=== PATIENT | female | born 1950 | race Caucasian/White ===

== ENCOUNTER → 2024-06-07 07:45 | Outpatient (REF) | payer MEDICARE, OTHER, SELFPAY ==
[2024-06-07 08:46] LABS: % Basophils 0.2 % (0-2); % Immature Granulocytes 0.6 % (0-0.5); % Lymphocytes 6.1 % (20.5-51.1); % Monocytes 3.7 % (1.7-9.3); % Neutrophils 89.4 % (42.2-75.2); Absolute Immature Granulocytes 0.1 10^3/uL (0-0.05); Absolute Lymphocytes 0.7 10^3/uL (1.2-3.4); Absolute Monocytes 0.4 10^3/uL (0.1-0.6); Absolute Neutrophils 10.7 10^3/uL (1.4-6.5); Hematocrit 46.6 % (37.0-47.0); Hemoglobin 16.1 g/dL (12.0-16.0); Mean Corp Hgb Conc. 34.5 g/dL (33.0-37.0); Mean Corpuscular Hgb 32.1 pg (27.0-31.0); Mean Corpuscular Volume 92.8 fL (81.0-99.0); Mean Platelet Volume 9.2 fL (7.4-10.4); Nucleated Red Blood Cells % 0 %; Platelet Count 328 10^3/uL (130-400); Red Blood Cell Count 5.02 10^6/uL (4.20-5.40); White Blood Cell Count 11.9 10^3/uL (4.8-10.8)
[2024-06-07 09:26] LABS: ALT (SGPT) 23 U/L (0-35); AST (SGOT) 26 U/L (14-36); Alkaline Phosphatase 61 U/L (38-126); Blood Urea Nitrogen 17 mg/dl (7-17); Calcium 10.1 mg/dl (8.4-10.2); Carbon Dioxide 24 mmol/L (22-30); Chloride 96 mmol/L (98-107); Glucose 108 mg/dl (70-99); HDL Cholesterol 86 mg/dl; LDL Cholesterol, Calculated 164 mg/dl; Potassium 4.4 mmol/L (3.5-5.1); Sodium 138 mmol/L (135-145); Total Bilirubin 0.6 mg/dl (0.2-1.3); Total Cholesterol 264 mg/dl (50-199); Total Protein 7.7 g/dl (6.3-8.2); Triglyceride 71 mg/dl (10-149); Very Low Density Lipoprotein 14 mg/dl (0-30); eGFR > 60.00
[2024-06-07 10:03] LABS: Intact PTH 38.6 pg/ml (13.6-85.8)
[2024-06-07 10:53] LABS: TSH Reflex To Free T4 0.39 uIU/ml (0.47-4.68)
[2024-06-07 11:21] LABS: Free T4 1.18 ng/dl (0.78-2.19)
== END ==
LOC: REG 07:45
PROVIDERS: ATTENDING PHYSICIAN Student in an Organized Health Care Education/Training Program
DX: E21.3 Hyperparathyroidism, unspecified (principal); D72.819 Decreased white blood cell count, unspecified; E05.90 Thyrotoxicosis, unspecified without thyrotoxic crisis or storm; E78.00 Pure hypercholesterolemia, unspecified; Z00.00 Encounter for general adult medical examination without abnormal findings
CPT/HCPCS: 36415; 80053; 80061; 83970; 84439; 84443; 85025

== ENCOUNTER → 2024-07-28 10:58 | Outpatient (REF) | payer MEDICARE, OTHER, SELFPAY ==
[2024-07-28 12:44] LABS: % Basophils 0.8 % (0-2); % Eosinophils 1.8 % (0-6); % Immature Granulocytes 0.8 % (0-0.5); % Lymphocytes 16.6 % (20.5-51.1); % Monocytes 9.2 % (1.7-9.3); % Neutrophils 70.8 % (42.2-75.2); Absolute Basophils 0.1 10^3/uL (0-0.2); Absolute Eosinophils 0.1 10^3/uL (0-0.7); Absolute Immature Granulocytes 0.1 10^3/uL (0-0.05); Absolute Monocytes 0.6 10^3/uL (0.1-0.6); Absolute Neutrophils 4.3 10^3/uL (1.4-6.5); Hematocrit 42.8 % (37.0-47.0); Hemoglobin 14.4 g/dL (12.0-16.0); Mean Corp Hgb Conc. 33.6 g/dL (33.0-37.0); Mean Corpuscular Hgb 31.6 pg (27.0-31.0); Mean Corpuscular Volume 94.1 fL (81.0-99.0); Mean Platelet Volume 9.4 fL (7.4-10.4); Nucleated Red Blood Cells % 0 %; Platelet Count 316 10^3/uL (130-400); Red Blood Cell Count 4.55 10^6/uL (4.20-5.40); Red Cell Dist. Width 12.2 % (11.5-14.5); White Blood Cell Count 6.1 10^3/uL (4.8-10.8)
[2024-07-28 13:19] LABS: TSH Reflex To Free T4 1.22 uIU/ml (0.47-4.68)
== END ==
LOC: REG 10:58
PROVIDERS: ATTENDING PHYSICIAN Student in an Organized Health Care Education/Training Program
DX: E03.9 Hypothyroidism, unspecified (principal); D58.2 Other hemoglobinopathies
CPT/HCPCS: 36415; 84443; 85025

== ENCOUNTER 2024-08-29 21:28 | Observation (INO) | payer MEDICARE, OTHER, SELFPAY ==
[2024-08-29 12:47] VITALS: BP 160/99
[2024-08-29 13:19] LABS: % Basophils 0.9 % (0-2); % Eosinophils 0.7 % (0-6); % Immature Granulocytes 0.6 % (0-0.5); % Lymphocytes 25.8 % (20.5-51.1); % Monocytes 10.4 % (1.7-9.3); % Neutrophils 61.6 % (42.2-75.2); Absolute Basophils 0.1 10^3/uL (0-0.2); Absolute Eosinophils 0.1 10^3/uL (0-0.7); Absolute Lymphocytes 1.8 10^3/uL (1.2-3.4); Absolute Monocytes 0.7 10^3/uL (0.1-0.6); Absolute Neutrophils 4.3 10^3/uL (1.4-6.5); Hematocrit 45.6 % (37.0-47.0); Hemoglobin 15.5 g/dL (12.0-16.0); Mean Corpuscular Hgb 31.4 pg (27.0-31.0); Mean Corpuscular Volume 92.5 fL (81.0-99.0); Mean Platelet Volume 9.3 fL (7.4-10.4); Nucleated Red Blood Cells % 0 %; Platelet Count 321 10^3/uL (130-400); Red Blood Cell Count 4.93 10^6/uL (4.20-5.40); Red Cell Dist. Width 12.2 % (11.5-14.5)
[2024-08-29 13:36] LABS: ALT (SGPT) 23 U/L (0-35); AST (SGOT) 33 U/L (14-36); Alkaline Phosphatase 51 U/L (38-126); Blood Urea Nitrogen 14 mg/dl (7-17); Calcium 9.9 mg/dl (8.4-10.2); Carbon Dioxide 24 mmol/L (22-30); Chloride 100 mmol/L (98-107); Glucose 115 mg/dl (70-99); Potassium 3.4 mmol/L (3.5-5.1); Sodium 140 mmol/L (135-145); Total Bilirubin 0.6 mg/dl (0.2-1.3); Total Protein 7.3 g/dl (6.3-8.2); eGFR > 60.00
[2024-08-29 13:41] LABS: NT-proBNP 54.5 pg/ml
[2024-08-29 14:04] LABS: TSH Reflex To Free T4 1.38 uIU/ml (0.47-4.68)
--- NOTE | 2024-08-29 16:33 | ED.GENMED ---
History of Present Illness
General
Chief Complaint: Breathing Problem
Source: patient
Exam Limitations: none
Time Seen by Provider: 08/29/24 15:10
Nursing documentation reviewed up to this point in time: agreed with
History of Present Illness
History of Present Illness:
73-year-old female past medical history of hypertension hyperlipidemia presenting to the emergency department today with concerns of worsening shortness of breath mainly with exertion. Has had symptoms intermittently when walking up the stairs
today at the grocery store was walking and felt very short of breath and had some tingling into her legs and hands. This seemed to resolve at rest. Currently asymptomatic here. Denies chest pain associated or palpitations. Denies any similar
symptoms in the past. Denies any nausea vomiting numbness weakness
Review of Systems
Review of Systems
Allergies reviewed?: Yes
All Other Systems: ROS reviewed and negative except as documented in HPI and ROS
Phy Exam
Physical Exam
Physical Exam:
GENERAL: Alert , in no apparent distress
EYE: pupils equal and reactive
NECK: Supple, no significant adenopathy.
ENT: o/p clr, mmm.
CARDIAC: Regular rate and rhythm .
LUNGS: Clear breath sounds bilaterally, no acute respiratory distress, no wheezes/rales/rhonchi
ABDOMEN: Soft, without focal tenderness, no r/g, no cvat
NEUROLOGICAL: Alert and oriented, no focal neuro deficits
SKIN: Warm and dry, skin intact.
MUSCULOSKELETAL: No edema, well perfused.
PSYCH: Normal and appropriate interaction.
Scores
Heart Failure Risk
Heart Failure Risk Score: Yes
History of Stroke or TIA: No
History of intubation for respiratory distress: No
Heart rate on ED arrival >/= 110: Yes
SaO2 <90% on arrival on room air: No
HR >/=110 during 3min walk test (or too ill to perform test): Yes
ECG has acute ischemic changes: No
Urea >/=12mmol/L (BUN 33.6mg/dL): No
Serum CO2>/=35mmol/L: No
Troponin I or T elevated to SC Level (0.4mg/dL): No
NT-proBNP >/=5,000ng/L (5,000pg/ml): No
HF Risk Score: 2
Admission Status: MEDIUM RISK 9.2% Consider observation or discharge to home with homecare & f/u visit to PCP/Armature Tester, or SNF for treatment
Course
Orders/Labs/Results
Orders:
Orders
08/29/24 12:45
EKG [Electrocardiogram (*1)] Urgent
Reason for Study: Shortness of Breath
08/29/24 12:46
EKG- Treatment ONCE
08/29/24 13:01
BNP [NT-proBNP] Urgent
Complete Blood Count/With Diff Urgent
Comprehensive Metabolic Panel Urgent
TSH Reflex To Free T4 Urgent
08/29/24 15:12
Chest [CR Chest - 2 Views ] Urgent
Comment:
Reason For Exam: powell sob
08/29/24 16:04
D-Dimer Urgent
Troponin I Urgent
Abnormal Lab Results
08/29/24
13:01
MCH 31.4 H pg
(27.0-31.0)
Absolute Monos (auto) 0.7 H 10^3/uL
(0.1-0.6)
Immature Gran % 0.6 H %
(0-0.5)
Monocytes % 10.4 H %
(1.7-9.3)
Potassium 3.4 L mmol/L
(3.5-5.1)
Glucose 115 H mg/dl
(70-99)
08/29/24 13:01
08/29/24 13:01
Vital Signs
Initial and Last Documented VS:
Initial Vital Signs
Temp Pulse Resp BP Pulse Ox
98.3 F 119 18 160/99 99
08/29/24 12:47 08/29/24 12:47 08/29/24 12:47 08/29/24 12:47 08/29/24 12:47
Last Documented Vital Signs
Temp Pulse Resp BP Pulse Ox
98.3 F 85 20 160/99 94
08/29/24 12:47 08/29/24 17:15 08/29/24 16:39 08/29/24 12:47 08/29/24 18:30
MDM/Problems Addressed
MDM/Problems Addressed:
73-year-old female presenting to the emergency department today with concerns of POWELL intermittently over the past few days but specifically worsening today where she had an episode where she felt very short of breath in the grocery store and had
tingling into her hands and feet. Symptoms now resolved. On arrival tachycardic and hypertensive otherwise vital signs normal. No history of blood clots no recent trauma surgery immobilization, leg swelling, estrogen product usage. Labs
unremarkable EKG nonischemic no signs of arrhythmia. Chest x-ray normal troponin negative D-dimer negative. Unclear source of shortness of breath. She was walked here and claims that she felt very short of breath again had trouble ambulating
symptoms improved when resting considering her ongoing significant symptomatic shortness of breath and dyspnea on exertion plan to admit for further monitoring and assessment.
*Critical Care Note
Total Time (30-74mins, 75-104mins- exclusive of procedures): Not Applicable
ED Attending Note
-
Portions of this chart may have been created with voice recognition software.� Occasional wrong word or��sound alike� substitutions may have occurred due to the inherent limitations of voice recognition software.
Discharge Plan
Departure
Patient Disposition: Admit
Date of Disposition: 08/29/24
Time of Disposition: 18:51
Admit to: Telemetry
Admit to doctor: Michelle
Presentation/result/management discussed w/ accepting MD/DO: Hospitalist
Patient with high blood pressure during this ER visit?: No
Condition: Good
Covid-19: Not Applicable
Discharge Problem:
POWELL (dyspnea on exertion)
Referrals:
Renuka Chandra MD [Family Provider] -
Interventions
Interventions:
*Risk Screen - Suicide Last Done: 08/29/24 12:47
*General Assessment Last Done: 08/29/24 12:47
*Neglect/Abuse Screening Last Done: 08/29/24 12:47
ED- Fall Risk Assessment Last Done: 08/29/24 15:30
*ED COVID-19 Vaccine History Last Done: 08/29/24 12:47
ED- Cardiac Assessment Last Done: 08/29/24 16:34
ED- Pulmonary Assessment Last Done: 08/29/24 16:34
Discharge Date and Time
Print Language: SURINAMESE
[2024-08-29 16:41] LABS: D-Dimer < 0.27 ug/mlFEU (0.00-0.50)
[2024-08-29 16:42] LABS: Troponin I < 0.012 ng/ml
[2024-08-29] MEDS: TYLENOL 650 MG PO ×2 (19:18→22:48)
--- NOTE | 2024-08-29 19:29 | HPS.HSE ---
Addendum entered and electronically signed by Nelli Martinez DO 08/30/24 00:36:
The patient was seen and examined. I have discussed the patient with Ragini, reviewed her history and physical, and agree with her H & P, assessment and plan of care with additions:
The patient denies chest pain, dyspnea has been worse on exertion, such as walking up stairs, over the past week or so. Of note, she was able to work out on her elliptical yesterday without chest pain nor symptoms.
BP remains high in ED. Orthostatics are normal in ED.
HTN and otherwise VSS/AF
Neuro-no focal deficits
CV RRR, no m/r/g
Lungs CTA b/l no w/r/r
Neuro-no focal deficits
# Concern is for possible cardiogenic etiology to dyspnea, initial EKG with ST changes, repeat EKG without ST changes , DDimer WNL
-tele monitoring
-check echo
-consider Cardiology cx pending echo/clinical course
#Hypokalemia (3.4), hypomagnesemia (1.7)
-replete, monitor
Original Note:
Family Physician
-
Family Physician: Renuka Chandra MD
Chief Complaint
-
shortness of breath with exertion
History of Present Illness
Patient is a 73-year-old female with past medical history significant for hypertension, hyperthyroidism, hypercalcemia, and osteoporosis who presented to [facility] for evaluation of increased dyspnea on exertion. Patient states over past few
days she has noticed an increase in shortness of breath with exertion intermittently. She states when symptoms are present she has tingling in her arms and legs with diaphoresis. Patient reports she has noticed this when walking up stairs over past
few days then this morning when walking into grocery store with any empty cart, she reports only getting to second aisle when she decided she needed to come to ED for evaluation. She did mention she was able to work on elliptical yesterday for 15
minutes without any symptoms or shortness of breath. Patient denies any fever, chills, chest pain, palpitations, cough, nausea, vomiting, constipation, diarrhea or urinary symptoms.
Medical History
Past Medical History
Past Medical History: Reports Other
Additional Past Medical History:
hypertension
hyperthyroidism
hypercalcemia
osteoporosis
Past Surgical History: Reports Other
Additional Past Surgical History:
hysterectomy
partial parathyroidectomy
Social History
Tobacco: Non-smoker
Alcohol: Occasional
Drug: Marijuana (smokes medical marijuana vape prior to bed to assist with sleep)
Personal:
Living: With Family
Employment: Retired
Family History
Family History: Not pertinent
Allergies / Home Medications
Allergies reflects when Allergies were last updated in [facility].
Home Medications with original date entered in [facility]
Allergy/Medication List:
Allergies
Allergy/AdvReac Type Severity Reaction Status Date / Time
No Known Allergies Allergy Unverified 08/29/24 12:50
Home Medications
Medical Marijuana 3 puff inhalation HS 08/29/24
acetaminophen 500 mg tablet (Tylenol Extra Strength) 1,000 mg PO Q6HPRN PRN mild pain 08/29/24
calcium carbonate (Calcium 600) 600 mg PO DAILY 08/29/24
hydrochlorothiazide 25 mg tablet 25 mg PO HS 08/29/24
ipratropium bromide 21 mcg (0.03 %) nasal spray 2 spray intranasal BIDPRN PRN congestion 08/29/24
propranolol 40 mg tablet 40 mg PO HS 08/29/24
sumatriptan succinate 100 mg tablet 100 mg PO DAILYPRN PRN migraine 08/29/24
Review of Systems
-
History Source: Patient
Constitutional: Reports No Symptoms
EENT: Reports No Symptoms
Respiratory: Reports Other (shortness of breath with exertion )
Cardiac: Reports Diaphoresis
Abdomen/GI: Reports No Symptoms
: Reports No Symptoms
Musculoskeletal: Reports No Symptoms
Skin: Reports No Symptoms
Neurological: Reports Numbness (bilateral upper and lower extremities )
Endocrine: Reports No Symptoms
Hematologic/Lymphatic: Reports No Symptoms
Psych: Reports No Symptoms
Physical Exam
Vital Signs
Vital Signs
Temp Pulse Resp BP Pulse Ox
98.3 F 85 20 160/99 94
08/29/24 12:47 08/29/24 17:15 08/29/24 16:39 08/29/24 12:47 08/29/24 18:30
Physical Exam
General: Well Developed, Well Nourished, No Apparent Distress, Comfortable and Conversant
HEENT: NormoCephalic, Moist mucous membranes, Atraumatic, PERRLA, [place] Conjunctivae, Nose Appears Normal and Ears Appear Normal
Respiratory: Clear and Non Labored Respirations; No Wheezes, Rales, Rhonchi or Crackles
Cardiac: S1/S2 and Regular Rhythm; No Murmur, Rub or Gallop
Breast: Deferred by me
GI: Soft, Non Tender, Non Distended and Normal Bowel Sounds; No Organomegaly
Rectal: Deferred by Provider
Genito-urinary: Deferred by me
Musculoskeletal: No Clubbing, No Cyanosis and No Edema
Skin: Warm and IV/Catheter Site; No Rash
Neuro: Awake, Alert, AO x 3 and Nonfocal/grossly intact
Hematologic/Lymphatic: No Lymphadenopathy
Psych: Calm and Intact Judgment/Insight
Laboratory Results
-
08/29/24 13:01
08/29/24 13:01
Laboratory Results
Total Bilirubin 0.6 mg/dl (0.2-1.3) 08/29/24 13:01
AST 33 U/L (14-36) 08/29/24 13:01
ALT 23 U/L (0-35) 08/29/24 13:01
Alkaline Phosphatase 51 U/L (38-126) 08/29/24 13:01
Troponin I < 0.012 ng/ml 08/29/24 16:04
Data Reviewed
-
Diagnostic Radiology: Report Reviewed by me (CXR: No acute cardiopulmonary process.)
Medical Tests (Nuc Med, Echo, EKG etc): Report Reviewed by me (CXR: SINUS TACHYCARDIA WITH FUSION COMPLEXES ST and T WAVE ABNORMALITY, CONSIDER ANTEROLATERAL ISCHEMIA)
Lab Data: Labs Reviewed by me
Impression/Plan
-
IMPRESSION/PLAN:
#dyspnea on exertion
EKG: SINUS TACHYCARDIA WITH FUSION COMPLEXES
ST and T WAVE ABNORMALITY, CONSIDER ANTEROLATERAL ISCHEMIA
CXR: No acute cardiopulmonary process
- Admit to telemetry
- ECHO in morning
- Consider cards consult
#hypertension
- continue HCTZ and propranolol
#hyperthyroidism
#hypercalcemia
Hx partial parathyroidectomy
#Insomnia
utilizes medical marijuana at home for sleep
#osteoporosis
bone density survey: Osteoporosis. There has been a statistically significant decrease in bone mineral density in the lumbar spine and proximal femur since the prior examination.
Bone mineral density in the forearm is within the range of osteoporosis. There has been no statistically significant interval change.
Code Status: Full Code
DVT Prophylaxis: Lovenox Sq
[2024-08-29 22:12] LABS: Troponin I < 0.012 ng/ml
[2024-08-29 22:25] VITALS: BP 145/90
[2024-08-29 22:26] VITALS: BMI 24.2
[2024-08-29 22:39] LABS: Magnesium 1.7 mg/dl (1.6-2.3)
[2024-08-29] MEDS: MELATONIN 5 MG PO (22:48)
[2024-08-29] MEDS: ORETIC 25 MG PO (22:49)
[2024-08-29] MEDS: KCL 40 MEQ PO (22:49)
[2024-08-29] MEDS: INDERAL 40 MG PO (22:49)
--- NOTE | 2024-08-29 23:31 | PTCARENOTE ---
Patient arrived on unit from ED via stretcher. Patient able to safely ambulate into room 339-2 on . Patient AAOx3 and able to make needs known. Oriented to unit. Call hernandez within reach. Plan of care ongoing.
[2024-08-30] MEDS: MAGNESIUM SULFATE 102 GRAMS IV (01:20)
[2024-08-30 03:48] VITALS: BP 132/81
[2024-08-30 06:26] LABS: Hematocrit 43.1 % (37.0-47.0); Hemoglobin 14.7 g/dL (12.0-16.0); Mean Corp Hgb Conc. 34.1 g/dL (33.0-37.0); Mean Corpuscular Volume 93.7 fL (81.0-99.0); Mean Platelet Volume 9.7 fL (7.4-10.4); Platelet Count 283 10^3/uL (130-400); Red Cell Dist. Width 12.2 % (11.5-14.5); White Blood Cell Count 5.3 10^3/uL (4.8-10.8)
[2024-08-30 06:55] LABS: Blood Urea Nitrogen 10 mg/dl (7-17); Calcium 8.7 mg/dl (8.4-10.2); Carbon Dioxide 23 mmol/L (22-30); Chloride 105 mmol/L (98-107); Estimated Creatinine Clearance 69 ml/min; Glucose 100 mg/dl (70-99); Sodium 138 mmol/L (135-145); eGFR > 60.00
[2024-08-30 08:26] VITALS: BP 157/93
--- NOTE | 2024-08-30 10:03 | W.PN.HOSP.TC ---
Addendum entered and electronically signed by Francesco Lui MD 08/30/24 13:32:
Seen and examined by me independently in collaboration with the medical coding manager.
Lab data and imaging data reviewed.
Addendum as below :
Patient without prior cardiopulmonary issues presented with episodic shortness of breath. The shortness of breath is associate with exertion sometimes on other times without it. First episode according to patient was 3 days ago and the next 1 was
on the day of admission. She developed sudden onset of shortness of breath and said last for a while. The last episode she had uneasy feeling in general she had tingling numbness in her limbs. She also broke out in a sweat. She did not feel
right.
According to the she had 1 more episode 5 to 7 days prior to admission to the hospital. She does not perceive any palpitations or racing of the heart. No cough. No sore throat. No wheeze.
No prior cardiac disease.
Chest is clear. Heart sound S1 plus S2 heard.
No lower extremity edema. Abdomen benign.
Admitting EKG showed nonspecific ST-T changes but the follow-up EKG was normal. Chest x-ray negative. Diagnostic eval negative so far.
Concern would be of any exertional angina or any intermittent arrhythmia.
Consult cardiology.
Hypokalemia-replete. Patient on long standing hydrochlorothiazide without prior electrolyte issues. Will continue to follow.
Blood pressure on the higher side unclear if related to her current situation. Usually well-controlled. Continue with hydrochlorothiazide. She is on propranolol for her migraine headaches which we will continue. Currently no migraine headaches.
Discussed with at bedside.
Total time spent on today's encounter was 52 minutes which included time spent in counseling the patient/family regarding diagnosis and treatment plan as listed above, goals of care, and symptom management. Case was discussed with nursing staff,
specialists, and care coordinators/case management. All labs and imaging personally reviewed by me. Remainder the time spent in detailed review of previous records, lab data, imaging, and other medical provider documentation.
Original Note:
Today's Communication/Plan
-
d/c pending card recs
Assessment / Plan
Assessment / Plan
The patient is a 73-year-old female with past medical history significant for hypertension, hyperthyroidism, hypercalcemia, and osteoporosis who presented to ED for evaluation of increased dyspnea on exertion
#dyspnea on exertion
CXR: No acute cardiopulmonary process
Trops negative
D-dimer, TSH WNL
pro BNP 54.5
- ECHO unremarkable
- card input pending , stress test?
- d/c accordingly
# Concern is for possible cardiogenic etiology to dyspnea, initial EKG with ST changes, repeat EKG without ST changes
-tele monitoring
#Hypokalemia (3.4), hypomagnesemia (1.7)
-repleted, monitor
#hypertension
- continue HCTZ and propranolol
#hyperthyroidism
#hypercalcemia
Hx partial parathyroidectomy
#Insomnia
utilizes medical marijuana at home for sleep
#osteoporosis
Bone density survey 03/12: Osteoporosis. There has been a statistically significant decrease in bone mineral density in the lumbar spine and proximal femur since the prior examination.
Bone mineral density in the forearm is within the range of osteoporosis. There has been no statistically significant interval change.
Code Status: Full Code
DVT Prophylaxis: Lovenox Sq
Anticipated Discharge: Within 24 hours
Subjective/Interval History
-
Date of Service: August 30, 2024
Afebrile. Bp slightly on higher side
Objective Data
-
Labs:
Laboratory Results
08/30/24
05:42
WBC 5.3
Hgb 14.7
Hct 43.1
Plt Count 283
Sodium 138
Potassium 4.0
Chloride 105
Carbon Dioxide 23
BUN 10
Creatinine 0.7
Glucose 100 H
Calcium 8.7
Vital Signs:
Vital Signs
Temp Pulse Resp BP Pulse Ox
98.3 F 85 16 157/93 98
08/30/24 08:26 08/30/24 08:26 08/30/24 08:26 08/30/24 08:26 08/30/24 08:26
I&O
08/29/24 08/30/24 08/31/24
06:59 06:59 06:59
Intake Total 480 / 480
Balance 480 / 480
Review of Systems
-
History Source: Patient
All other systems: Reviewed and negative
Physical Exam
-
General: Well Developed and Well Nourished
Respiratory: Clear to Auscultation
Cardiac: Regular Rhythm
GI: Soft and Nontender
Skin: Warm and Dry
Neuro: Awake, Alert and Oriented
Psych: Calm
Data Reviewed
-
Diagnostic Radiology: Report Reviewed by me
Labs: Labs Reviewed by me
--- NOTE | 2024-08-30 10:40 | CON.CAR ---
Addendum entered and electronically signed by Joaquin River MD 08/30/24 11:58:
I saw and examined the patient.
The CHARTERED WEALTH MANAGER or PA's note was reviewed and I agree with the note.
Comment: General: Well developed, well nourished in NAD.
Neck: Supple, no JVD, HJR, carotids +2 B/L, no bruits bilaterally.
Heart: Non displaced PMI, RRR, no murmurs, No S3, S4, no rubs.
Lungs: Scattered rhonchi
Extremities: No clubbing, cyanosis or edema bilaterally.
Neuro: Grossly nonfocal, awake, alert and oriented x3.
Angie has a history of migraines. She presents with progressive shortness of breath which occurred at rest. She normally exercises and exercised 2 days ago. Cardiology is asked to see patient to exclude cardiac etiology.
Unusual for cardiac presentation and that symptoms occurred rapidly and was exercising up until 2 days ago. Also troponins are negative and ECG is unremarkable.
Echocardiogram was normal as well.
Will do exercise sestamibi stress test from 08/31/2024 and if normal would pursue other workup such as pulmonary etiology.
Original Note:
Consultation
Consultation Request
Date/Time Consultation Performed: 08/30/24
Requesting Provider: Dr. Lui
Performing Provider: Kristina Lewis PA-C for Dr. River
Reason for Consultation: SOB
Medical History
-
Chief Complaint: SOB
History of Present Illness:
Patient is a 73-year-old female with past medical history of migraines, back pain, parathyroid surgery who presented to [facility] for evaluation of shortness of breath. She reports over the last several weeks she has randomly noted that
her breathing is difficult and more rapid. Yesterday she reported it was worse. She went to the grocery store and after going down about 2 aisles felt dyspneic as well as with tingling in her bilateral arms and legs and broke out into a sweat.
She came to the ER for evaluation. She reports this resolved over time. Since admission she reports recurrence several times, after prolonged talking, and once after ambulating in the hallway with nursing. Troponins negative x 2. Initial EKG
with concern for anterolateral ST abnormality, resolved upon repeat. No CP. She does report she was able to go on the elliptical for about 15 minutes yesterday morning without difficulty. Cardiology consulted for evaluation. Denies history of
cardiac issues or lung issues in past.
PMH:
Migraines
Back pain
Parathyroid surgery
Past Medical History
Past Medical History: Other (in HPI)
Social History
Tobacco: Non-Smoker
Alcohol: Daily (2 small glasses of wine)
Personal:
Living: With Family
Employment: Retired (teacher)
Family History
Family History: Other (possible CVA in father)
Allergies / Home Medications
Allergy/AdvReac Type Severity Reaction Status Date / Time
No Known Allergies Allergy Unverified 08/29/24 12:50
�Medication �Instructions �Recorded �Confirmed �Type
Medical Marijuana 3 puff inhalation HS 08/29/24 08/29/24 History
acetaminophen 500 mg tablet 1,000 mg PO Q6HPRN PRN mild pain 08/29/24 08/29/24 History
(Tylenol Extra Strength)
calcium carbonate (Calcium 600) 600 mg PO DAILY Supplement 08/29/24 08/29/24 History
hydrochlorothiazide 25 mg tablet 25 mg PO HS Fluid 08/29/24 08/29/24 History
Retention/Swelling
ipratropium bromide 21 mcg (0.03 2 spray intranasal BIDPRN PRN 08/29/24 08/29/24 History
%) nasal spray congestion
propranolol 40 mg tablet 40 mg PO HS Blood Pressure 08/29/24 08/29/24 History
sumatriptan succinate 100 mg tablet 100 mg PO DAILYPRN PRN migraine 08/29/24 08/29/24 History
Review of Systems
-
History Source: Patient
All other systems: Negative unless noted
Physical Exam
Vital Signs
Temp Pulse Resp BP Pulse Ox
98.3 F 85 16 157/93 98
08/30/24 08:26 08/30/24 08:26 08/30/24 08:26 08/30/24 08:26 08/30/24 08:26
Lab Results
08/30/24 05:42
08/30/24 05:42
Troponin I < 0.012 ng/ml 08/29/24 21:40
Xko-F-Ivcuyvmeuel Pept 54.5 pg/ml 08/29/24 13:01
Physical Exam
General: No Apparent Distress and Comfortable
HEENT: Normocephalic, Anicteric and Moist Mucous Membranes
Respiratory: Wheezes (mild exp ) and Non Labored Respirations
Cardiac: S1/S2 and Regular Rhythm
GI: Soft, Non Tender, Non Distended and Normal Bowel Sounds
Musculoskeletal: No Clubbing, No Cyanosis and No Edema
Skin: Warm and Dry
Neuro: AO x 3
Impression / Plan
-
Primary Forging Machine Hand: none prior to admission
Assessment:
Presentation with SOB
Negative troponins x2
Migraines
Back pain
Parathyroid surgery
ECHO 08/30/24: pending
Plan:
-Patient presents with shortness of breath, with some features concerning for angina and others atypical
-Troponins negative x 2
-Chest x-ray without acute abnormality
-O2 sats stable on room air. check amb pulse ox
-Telemetry without arrhythmia overnight
-Initial EKG on arrival with artifact, however evidence of possible anterolateral ST abnormality, resolved by repeat EKG
-Echo pending
-Discussed exercise nuclear stress test in a.m. and patient agreeable. N.p.o. after midnight.
-Further recommendations based on results of cardiac testing
Data Reviewed
-
EKG: Tracing Personally Visualized and interpreted
Radiology: Report Reviewed by me
Labs: Labs Reviewed by me
Old Records: Reviewed
[2024-08-30 11:29] VITALS: BP 155/96
[2024-08-30] MEDS: TYLENOL 650 MG PO ×3 (11:30→22:16)
[2024-08-30 15:30] VITALS: BP 132/81
--- NOTE | 2024-08-30 16:33 | CM ---
Alert awake oriented patient who lives with her Vamsi who lives in a 2 story home with 3 steps to enter and 10 to bed bathroom. She is independent in driving and in all activities of daily living.No adaptive devices. Offered VN she
declined.[facility] letter given explained. Pt declined to sign.
Never had VN/SNF
Pharmacy [facility]
PCP Dr Morrow
PLAN Home no needs
[2024-08-30] MEDS: LOVENOX 40 MG SC (17:31)
[2024-08-30 19:36] VITALS: BP 130/84
[2024-08-30] MEDS: ORETIC 25 MG PO (21:44)
[2024-08-30] MEDS: MELATONIN 5 MG PO (22:16)
[2024-08-30 23:40] VITALS: BP 122/82
[2024-08-31 03:36] VITALS: BP 138/90
--- NOTE | 2024-08-31 08:51 | W.DCSUMMARY ---
Discharge Summary
Discharge Data
Date of Admission: 08/29/24
Date of Discharge: 08/31/24
-
Pending Results: No
Hospital Course
Discharging Physician : Milton Sherman MD; Francesco Lui MD
Disposition : Home
Primary care physician : Renuka Chandra
Principal Discharge diagnosis : Dyspnea on exertion
Chronic Discharge diagnosis : Hypertension, hypothyroidism, hypercalcemia, insomnia, osteoporosis,
Hospital Course : 73-year-old female with past medical history significant for hypertension, hyperthyroidism, hypercalcemia, and osteoporosis who presented to ED for evaluation of increased dyspnea on exertion. Patient stated over past few days
she noticed an increase in shortness of breath with exertion intermittently guillermo when walking up stairs and when walking into grocery store with any empty cart on [employer]. Initial EKG in the ER showed sinus tachycardia with fusion complexes, ST and T
wave abnormality, however repeat EKG and tropes were negative. Chest x-ray was obtained which showed no acute cardiopulmonary process. Patient was admitted to telemetry with plan to complete echo and cardiology consult was placed. D-dimer, TSH WNL
pro BNP 54.5. Potassium was 3.4 and magnesium was 1.7, she was given p.o. KCl 40 mEq and 1 g magnesium sulfate IV. Her home medication for blood pressure were continued during her stay at the hospital. Echo was unremarkable in the morning.
Cardiology saw the patient and believe this was unusual for cardiac presentation as the symptoms occur rapidly and she was able to perform ADLs 2 days ago. They recommended stress test for further evaluation, which came back unremarkable. She has
been cleared medically stable for discharge home with outpatient cardiac follow-up scheduled for September 28, 2024. 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
Important imaging findings : CXR FINDINGS:
Lungs: Stable left basilar scarring. No convincing acute focal infiltrates. No significant pleural effusions. No visualized pneumothorax.
Heart: Cardiac and mediastinal contours are unremarkable. No overt pulmonary vascular congestion.
Osseous structures: No acute abnormalities.
IMPRESSION:
No acute cardiopulmonary process
Procedure findings :
EKG #1: SINUS TACHYCARDIA WITH FUSION COMPLEXES
ST and T WAVE ABNORMALITY, CONSIDER ANTEROLATERAL ISCHEMIA
EKG#2:
NORMAL SINUS RHYTHM
PROLONGED QT
ECHO:
CONCLUSIONS
Normal left ventricular chamber size. Normal left ventricular systolic
function. Normal regional wall motion. Normal left ventricular wall thickness.
Left ventricular ejection fraction is 55-60% by Dickey's method of discs.
Normal diastolic function.
Discharge Plan
-
Patient Disposition: Home (Routine Discharge)
Discharge Diagnosis/Procedures: Episodic shortness of breath of unclear etiology
Diet: 2 Gram Sodium
Activity: As tolerated
Driving Restrictions: As prior to admission
Bathing Restrictions: None
Others Tests: Out patient Bard[employer] heart monitor- to be arranged by cardiology
Referrals:
Renuka Chandra MD [Family Provider] - in less than 1 week
Renetta Tavares PA-C [Specified Professional Personl] - 09/28/24 7:40 am (You have a cardiology follow up appointment at the [place] office. Please call with questions. )
Prescriptions:
Continued
sumatriptan succinate 100 mg Tablet
100 mg PO DAILYPRN PRN (Reason: migraine)
acetaminophen [Tylenol Extra Strength] 500 mg Tablet
1,000 mg PO Q6HPRN PRN (Reason: mild pain)
calcium carbonate [Calcium 600] 600 mg calcium (1,500 mg) Tablet
600 mg PO DAILY
propranolol 40 mg Tablet
40 mg PO HS
hydrochlorothiazide 25 mg Tablet
25 mg PO HS
ipratropium bromide 21 mcg (0.03 %) Odon,Non-Aerosol
2 spray INTRANASAL BIDPRN PRN (Reason: congestion)
Medical Marijuana
3 puff inhalation HS
Discharge Orders:
Discharge Patient (As Directed); Ordered 08/31/24
Ordered By: Francesco Lui
Discharge Date and Time
Print Language: MAORI
--- NOTE | 2024-08-31 10:42 | W.PN.CARDCBS ---
Today's Communication / Plan
-
Exercise nuclear stress test today
Impression / Plan
-
Primary Technology Assistant: none prior to admission
Assessment:
Presentation with SOB
Negative troponins x2
Migraines
Back pain
Parathyroid surgery
ECHO 08/30/24: pending
Plan:
-Patient presents with shortness of breath, with some features concerning for angina
-Denies further symptoms during hospitalization
-Troponins negative x 2
-CBC unremarkable
-proBNP not elevated, 54.5
-TSH within normal limits
-Renal function/electrolytes and LFTs within normal limits.
-Hyperglycemia�check hemoglobin A1c
-Chest x-ray without acute abnormality
-Telemetry without arrhythmia
-Calcium score CT scan 05/18/2023 calcium score 0. Ascending thoracic aorta mildly ectatic 4.2 cm.
-Echo 08/30/2024 with normal biventricular size and systolic function, normal diastolic function, normal LV wall thickness and no significant valve pathology. No pericardial effusion.
-Blood pressures elevated although improved. Will check blood pressure response to exercise with stress test.
-Exercise nuclear stress test today- pending
-Further recommendations based on results of cardiac testing; if stress test is reassuring plan for discharge with outpatient cardiac follow-up
Progress Note - Technology Assistant
Subjective
Date of Service: August 31, 2024
Objective
Labs:
08/30/24 05:42
08/30/24 05:42
Labs
Hgb 14.7 g/dL (12.0-16.0) 08/30/24 05:42
Hct 43.1 % (37.0-47.0) 08/30/24 05:42
Plt Count 283 10^3/uL (130-400) 08/30/24 05:42
Sodium 138 mmol/L (135-145) 08/30/24 05:42
Potassium 4.0 mmol/L (3.5-5.1) 08/30/24 05:42
BUN 10 mg/dl (7-17) 08/30/24 05:42
Creatinine 0.7 mg/dL (0.6-1.0) 08/30/24 05:42
Glucose 100 mg/dl (70-99) H 08/30/24 05:42
Troponins
08/29/24 08/29/24
16:04 21:40
Troponin I < 0.012 < 0.012
Vital Signs and I&O:
Vital Signs
Temp Pulse Resp BP Pulse Ox
97.8 F 70 20 138/90 97
08/31/24 03:36 08/31/24 03:36 08/31/24 03:36 08/31/24 03:36 08/31/24 03:36
Vital Signs
Temp Pulse Resp BP Pulse Ox
97.8 F 70 20 138/90 97
08/31/24 03:36 08/31/24 03:36 08/31/24 03:36 08/31/24 03:36 08/31/24 03:36
Intake & Output
08/29/24 08/30/24 08/31/24 09/01/24
06:59 06:59 06:59 06:59
Intake Total 480 / 480 420 / 420
Balance 480 / 480 420 / 420
Physical Exam
Physical Exam
General: No acute distress, AAOX3
Neck: Negative JVD
Heart: Regular, positive S1/S2,No murmur
Lungs: CTA b/l, negative wheezes/rales/rhonchi
Abd: Positive BS, NT/ND, neg rebound/rigidity/guarding
Ext: Negative cyanosis/clubbing/edema
Neuro: nonfocal
[2024-08-31] MEDS: TYLENOL 650 MG PO (11:22)
[2024-08-31] MEDS: METAMUCIL, KONSYL 1 PACKET PO (11:23)
[2024-08-31 11:48] VITALS: BP 147/96
--- NOTE | 2024-08-31 13:22 | W.PN.HOSP.TC ---
Today's Communication/Plan
-
Follow stress test report
DC planning
Assessment / Plan
Assessment / Plan
Episodic shortness of breath associated with exertion. Associated sweating symptom with it once. So far diagnostic testing negative for cardiopulmonary acute processes. Evaluating for exertional angina. Stress test done report pending.
Brief nonsustained SVT-noted yesterday on telemetry. Asymptomatic. In view of episodic nature of her symptoms and if stress test is negative to consider for outpatient Holter.
Hypertension-continue with the home regimen
Migraine headaches-no breakthroughs-continue the home medication
DC home when okay from cardiology standpoint.
Anticipated Discharge: Today
Subjective/Interval History
-
Date of Service: August 31, 2024
Back from her stress test. Report pending.
Patient without recurrence of her symptoms.
Voicing no specific complaints.
Objective Data
-
Vital Signs:
Vital Signs
Temp Pulse Resp BP Pulse Ox
98.5 F 95 17 147/96 100
08/31/24 11:48 08/31/24 11:48 08/31/24 11:48 08/31/24 11:48 08/31/24 11:48
I&O
08/30/24 08/31/24 09/01/24
06:59 06:59 06:59
Intake Total 480 / 480 420 / 420
Balance 480 / 480 420 / 420
Review of Systems
-
Constitutional: Denies Fever
EENT: Denies Sore Throat
Respiratory: Denies Trouble Breathing
Cardiac: Denies Chest Pain or Palpitations
Abdomen/GI: Denies Abdominal Pain, Nausea or Vomiting
Physical Exam
-
General: No Apparent Distress
Respiratory: Non Labored Respirations; Negative Wheezes, Crackles or Accessory Resp Muscle Use
Cardiac: Regular Rhythm and S1/S2; Negative Tachycardic
GI: Soft
Neuro: AO x 3
--- NOTE | 2024-08-31 15:48 | CM ---
MD entered order for discharge.
Pt said Water will drive her home.Offered VN she declined need.
She is awaiting cardiology to call back to set up monitor .
PLAN Home no needs
[2024-08-31 16:03] VITALS: BP 152/90
[2024-08-31 20:42] LABS: Hepatitis C Antibody Negative (Negative)
[2024-09-01 09:37] LABS: Glycohemoglobin (HgbA1c) 5.1 % (4.0-5.6)
== END 2024-08-31 17:37 | disposition home or self-care (01) ==
LOC: 3 WEST ACU 21:28
PROVIDERS: Nurse Practitioner Family; Physician Assistant; Student in an Organized Health Care Education/Training Program; ADMITTING PHYSICIAN Internal Medicine; ATTENDING PHYSICIAN Internal Medicine; CONSULT PHYSICIAN Internal Medicine Cardiovascular Disease; EMERGENCY PHYSICIAN Emergency Medicine; FAMILY PHYSICIAN Student in an Organized Health Care Education/Training Program
DX: R06.09 Other forms of dyspnea (principal); R06.02 Shortness of breath; I10 Essential (primary) hypertension; E78.5 Hyperlipidemia, unspecified; R20.2 Paresthesia of skin; E87.6 Hypokalemia; E83.42 Hypomagnesemia; E05.90 Thyrotoxicosis, unspecified without thyrotoxic crisis or storm; M81.0 Age-related osteoporosis without current pathological fracture; G47.00 Insomnia, unspecified; G43.909 Migraine, unspecified, not intractable, without status migrainosus; M54.9 Dorsalgia, unspecified; R73.9 Hyperglycemia, unspecified; I47.10 Supraventricular tachycardia, unspecified; E03.9 Hypothyroidism, unspecified; E83.52 Hypercalcemia; Z82.3 Family history of stroke
CPT/HCPCS: 71046; 78452; 80048; 80053; 83036; 83735; 83880; 84443; 84484; 85025; 85027; 85379; 86803; 93005; 93017; 93306; 99285; A9500; G0378; Q9950

== ENCOUNTER → 2024-12-04 13:28 | Outpatient (REF) | payer MEDICARE, OTHER, SELFPAY | LOC: HWWDC 13:28 | PROVIDERS: ATTENDING PHYSICIAN Obstetrics & Gynecology; FAMILY PHYSICIAN Student in an Organized Health Care Education/Training Program | DX: Z12.31 Encounter for screening mammogram for malignant neoplasm of breast (principal) | CPT/HCPCS: 77063; 77067 ==

== ENCOUNTER → 2025-04-06 10:04 | Outpatient (REF) | payer MEDICARE, OTHER, SELFPAY | LOC: HWRAD 10:04 | PROVIDERS: ATTENDING PHYSICIAN Student in an Organized Health Care Education/Training Program | DX: M81.0 Age-related osteoporosis without current pathological fracture (principal) | CPT/HCPCS: 77080 ==